=== PATIENT | female | born 1990 | race Caucasian/White ===

== ENCOUNTER 2016-07-18 09:36 | Emergency (ER) | payer OTHER ==
[~2016-07-18] VITALS: Ht 162.6 cm; Wt 81.6 kg
[2016-07-18 09:36] VITALS: BP 133/68; PULSE 79; RESP 19; TEMP 97.9; O2SAT 100
[~2016-07-18 09:36] MED LIST: PREN-89 PO
[2016-07-18 10:37] LABS: CREATININE 0.99 mg/dL (0.55-1.30); POTASSIUM 3.7 mmol/L (3.5-5.1)
[2016-07-18 10:39] LABS: BARBITURATE, URINE NEGATIVE (NEG <=200); BENZODIAZEPINE, URINE NEGATIVE (NEG <=150); CANNABINOID, URINE POSITIVE (NEG <=50); COCAINE, URINE NEGATIVE (NEG <=150); METHAMPHETAMINES SCREEN,URINE NEGATIVE (NEG <=500); OPIATE, URINE NEGATIVE (NEG <=100); PHENCYCLIDINE SCREEN,URINE NEGATIVE (NEG <=25); UR TRICYCLIC ANTIDEPRESSANTS NEGATIVE (NEG <=300); URINE AMPHETAMINE NEGATIVE (NEG <=500); URINE METHADONE NEGATIVE (NEG <=200); URINE OXYCODONE SCREEN NEGATIVE (NEG <=100); URINE PROPOXYPHENE SCREEN NEGATIVE (NEG <=300)
[2016-07-18 10:40] LABS: INR 0.9 (0.8-1.2); PROTHROMBIN TIME 9.9 SECS (9.5-12.5)
[2016-07-18 10:42] LABS: ALBUMIN 3.4 g/dL (3.4-4.8); BASOPHILS % (AUTO) 0.7 % (0.0-2.0); EOSINOPHILS # (AUTO) 0.3 K/uL (0.0-0.4); EOSINOPHILS % (AUTO) 3.9 % (0.0-4.0); HEMATOCRIT 39.7 % (36-48); HEMOGLOBIN 13.3 g/dL (12.0-16.0); LYMPHOCYTES # (AUTO) 2.4 K/uL (1.0-5.5); LYMPHOCYTES % (AUTO) 33.4 % (20.5-51.5); MEAN CORPUSCULAR HEMOGLOBIN 31 pg (27-31); MEAN CORPUSCULAR HGB CONC 33 % (32-36); MEAN CORPUSCULAR VOLUME 92 fL (79.0-98.0); MONOCYTES # (AUTO) 0.4 K/uL (0.0-1.0); PLATELET COUNT (AUTO) 190 K/uL (130-430); RED BLOOD CELL COUNT(AUTO) 4.33 MIL/uL (4.2-6.2); RED CELL DISTRIBUTION WIDTH 13.1 % (9.0-15.0); TOTAL BILIRUBIN 0.2 mg/dL (0.0-1.0); TOTAL PROTEIN, SERUM 7.4 g/dL (6.4-8.3); WHITE BLOOD COUNT (AUTO) 7.1 K/uL (4.8-10.8)
[2016-07-18 14:07] VITALS: BP 119/82; PULSE 70; RESP 18; TEMP 98; O2SAT 100
== END 2016-07-18 14:07 | disposition home or self-care (01) ==
LOC: SED 09:36
DX: S09.90XA Unspecified injury of head, initial encounter (principal); V43.62XA Car passenger injured in collision with other type car in traffic accident, initial encounter; Y93.89 Activity, other specified; Y92.89 Other specified places as the place of occurrence of the external cause; Y99.8 Other external cause status
CPT/HCPCS: 36415; 70450-TC; 72125-TC; 73564; 80053; 80307; 81025; 82550-TC; 84703; 85025; 85610-TC; 85730-TC; 99285

== ENCOUNTER 2017-12-18 13:35 | Emergency (ER) | payer SELFPAY ==
[~2017-12-18] VITALS: Ht 162.6 cm; Wt 77.1 kg
[2017-12-18 13:45] VITALS: BP_SYST 129
[2017-12-18 14:15] VITALS: BP_SYST 128
== END 2017-12-18 14:18 | disposition home or self-care (01) ==
LOC: SED 13:35
DX: S09.90XA Unspecified injury of head, initial encounter (principal); R03.0 Elevated blood-pressure reading, without diagnosis of hypertension; W22.8XXA Striking against or struck by other objects, initial encounter; Y93.89 Activity, other specified; Y92.89 Other specified places as the place of occurrence of the external cause; Y99.8 Other external cause status
CPT/HCPCS: 99281

== ENCOUNTER 2018-04-19 20:13 | Emergency (ER) | payer SELFPAY ==
[~2018-04-19] VITALS: Ht 162.6 cm; Wt 81.6 kg
[2018-04-19 20:20] VITALS: BP_SYST 126
[2018-04-19] MEDS ORDERED: KETOROLAC TROMETHAMINE 30 MG VIAL IM ONE (21:00)
[2018-04-19 21:45] VITALS: BP_SYST 128
== END 2018-04-19 21:45 | disposition home or self-care (01) ==
LOC: SED 20:29
DX: O9A.211 Injury, poisoning and certain other consequences of external causes complicating pregnancy, first trimester (principal); S90.32XD Contusion of left foot, subsequent encounter; R03.0 Elevated blood-pressure reading, without diagnosis of hypertension; Z3A.14 14 weeks gestation of pregnancy; W20.8XXD Other cause of strike by thrown, projected or falling object, subsequent encounter
CPT/HCPCS: 99282

== ENCOUNTER 2018-07-26 03:35 | Emergency (ER) | payer MEDICAID ==
[~2018-07-26] VITALS: Ht 162.6 cm; Wt 81.6 kg
[2018-07-26 03:45] VITALS: BP_SYST 123
[2018-07-26] MEDS ORDERED: IBUPROFEN 800 MG TABLET PO ONE (04:00)
[2018-07-26] MEDS ORDERED: AMOXICILLIN 500 MG CAPSULE PO ONE (04:00)
[2018-07-26 04:20] VITALS: BP_SYST 125
== END 2018-07-26 04:20 | disposition home or self-care (01) ==
LOC: SED 03:35
DX: H66.91 Otitis media, unspecified, right ear (principal); J06.9 Acute upper respiratory infection, unspecified
CPT/HCPCS: 99283

== ENCOUNTER 2018-07-28 03:48 | Emergency (ER) | payer MEDICAID ==
[~2018-07-28] VITALS: Ht 162.6 cm; Wt 81.6 kg
[2018-07-28 03:53] VITALS: BP_SYST 130
[2018-07-28] MEDS ORDERED: NACL 0.9% 1,000 ML IV ONE (04:18)
[2018-07-28] MEDS ORDERED: MORPHINE 4 MG/ML INJ. SYRINGE IVP ONE (04:30)
[2018-07-28] MEDS ORDERED: DIPHENHYDRAMINE INJ 50 MG/ML VIAL IVP ONE (04:30)
[2018-07-28] MEDS ORDERED: ONDANSETRON HCL 4 MG/2 ML VIAL IVP ONE (04:45)
[2018-07-28 04:52] LABS: BASOPHILS % (AUTO) 0.7 % (0.0-2.0); EOSINOPHILS # (AUTO) 0.1 K/uL (0.0-0.4); EOSINOPHILS % (AUTO) 1.6 % (0.0-4.0); HEMATOCRIT 44.9 % (36-48); LYMPHOCYTES % (AUTO) 48.3 % (20.5-51.5); MEAN CORPUSCULAR HEMOGLOBIN 31 pg (27-31); MEAN CORPUSCULAR HGB CONC 33 % (32-36); MEAN CORPUSCULAR VOLUME 92 fL (79.0-98.0); MONOCYTES # (AUTO) 0.6 K/uL (0.0-1.0); MONOCYTES % (AUTO) 9.1 % (1.7-9.3); NEUTROPHILS # (AUTO) 2.5 K/uL (1.8-7.7); NEUTROPHILS % (AUTO) 40.3 % (40.0-70.0); PLATELET COUNT (AUTO) 224 K/uL (130-430); RED BLOOD CELL COUNT(AUTO) 4.87 MIL/uL (4.2-6.2); RED CELL DISTRIBUTION WIDTH 12.9 % (9.0-15.0); WHITE BLOOD COUNT (AUTO) 6.2 K/uL (4.8-10.8)
[2018-07-28 04:58] LABS: CALCIUM 9.1 mg/dL (8.4-11.0); CREATININE 0.89 mg/dL (0.55-1.30); POTASSIUM 3.8 mmol/L (3.5-5.1)
[2018-07-28 05:04] LABS: ALBUMIN 3.7 g/dL (3.4-4.8); TOTAL BILIRUBIN 0.4 mg/dL (0.0-1.0)
[2018-07-28 05:42] LABS: BILIRUBIN,URINE NEGATIVE (NEGATIVE); BLOOD, URINE 3+ (NEGATIVE); CLARITY/URINE CLEAR (CLEAR); COLOR,URINE YELLOW (YELLOW); GLUCOSE,URINE NEGATIVE (NEGATIVE); KETONES,URINE NEGATIVE (NEGATIVE); LEUKOCYTE ESTERASE ,URINE NEGATIVE (NEGATIVE); NITRITE, URINE NEGATIVE (NEGATIVE); PROTEIN URINE NEGATIVE (NEGATIVE); UROBILINOGEN,URINE 0.2 (0.2-1.0)
[2018-07-28 06:06] LABS: BACTERIA,URINE FEW /HPF (None Seen); WBC,URINE 0-3 /HPF (0-3)
[2018-07-28 06:51] VITALS: BP_SYST 124
== END 2018-07-28 06:51 | disposition home or self-care (01) ==
LOC: SED 03:48
DX: H66.93 Otitis media, unspecified, bilateral (principal); R51 Headache
CPT/HCPCS: 36415; 71045; 80053; 81000; 85025; 86710; 96374; 96375; 99284; J1200; J2270; J2405; J7030

== ENCOUNTER 2018-09-14 19:25 | Emergency (ER) | payer MEDICAID ==
[~2018-09-14] VITALS: Ht 162.6 cm; Wt 81.6 kg
[2018-09-14 19:30] VITALS: BP_SYST 119
== END 2018-09-15 04:52 | disposition left against medical advice (07) ==
LOC: SED 19:25
DX: R68.84 Jaw pain (principal); Z53.21 Procedure and treatment not carried out due to patient leaving prior to being seen by health care provider

== ENCOUNTER 2018-12-22 20:05 | Emergency (ER) | payer MEDICAID ==
[~2018-12-22] VITALS: Ht 162.6 cm; Wt 81.6 kg
[2018-12-22 20:13] VITALS: BP_SYST 116
[2018-12-22] MEDS ORDERED: ACETAMINOPHEN 325 MG TABLET PO ONE (20:45)
[2018-12-22 20:58] VITALS: BP_SYST 116
== END 2018-12-22 20:54 | disposition home or self-care (01) ==
LOC: SED 20:05
DX: S63.501A Unspecified sprain of right wrist, initial encounter (principal); W19.XXXA Unspecified fall, initial encounter; Y93.89 Activity, other specified; Y92.89 Other specified places as the place of occurrence of the external cause; Y99.8 Other external cause status
CPT/HCPCS: 99283

== ENCOUNTER 2019-03-06 18:34 | Inpatient (IN) | payer MEDICAID ==
[~2019-03-06] VITALS: Ht 162.6 cm; Wt 88.9 kg
[2019-03-06 18:45] VITALS: BP_SYST 123
--- NOTE | 2019-03-06 19:47 | NUR ---
Patient to ER bed 1 to gown for evaluation. Side rails up. Report given to Gina FIELDS.
--- NOTE | 2019-03-06 20:00 | NUR ---
Patient arrived via POV, AAOx4, and ambulatory with steady gait. Patient c/c of facial swelling. Patient states swelling was first noticed on Friday. Patient states early last week she had flu like symptoms like nausea, vomiting, diarrhea. Since resolved. Now, she has swelling to right "jawline" and patient having difficulty opening mouth. Patient has been taking OTC motrin for inflammation reduction, increased ability to open mouth. Patient states no increased salivation, recent dental work. Patient states she has intermittent feelings of shortness of breath, causing anxiety. Patients skin warm to touch. 98.2 was temperature recheck. Patient notes chills, and night sweats present. Unknown regarding fever. Will continue to follow up and monitor.
--- NOTE | 2019-03-06 20:59 | NUR ---
ER at bedside examining patient.
[2019-03-06] MEDS ORDERED: ONDANSETRON HCL 4 MG/2 ML VIAL IVP ONE (21:00)
[2019-03-06] MEDS ORDERED: NACL 0.9% 1,000 ML IV ONE (21:00)
[2019-03-06] MEDS ORDERED: MORPHINE 4 MG/ML INJ. SYRINGE IVP ONE (21:00)
[2019-03-06] MEDS ORDERED: DEXAMETHASONE SOD PHOSPHATE 10 MG/ML VIAL IVP ONE (21:00)
--- NOTE | 2019-03-06 21:20 | NUR ---
# 20 gauge angiocath placed to RAC. Use of asceptic technique. Opsite placed over site. Blood return noted. Blood for lab drawn from site. Flushed with 10 cc of normal saline. No evidence of infiltration noted. Patient tolerated well.
[2019-03-06 21:31] LABS: BASOPHILS # (AUTO) 0.1 K/uL (0.0-0.2); BASOPHILS % (AUTO) 0.7 % (0.0-2.0); EOSINOPHILS # (AUTO) 0.2 K/uL (0.0-0.4); EOSINOPHILS % (AUTO) 2.6 % (0.0-4.0); HEMATOCRIT 37.8 % (36-48); HEMOGLOBIN 12.5 g/dL (12.0-16.0); LYMPHOCYTES # (AUTO) 3.2 K/uL (1.0-5.5); LYMPHOCYTES % (AUTO) 34.7 % (20.5-51.5); MEAN CORPUSCULAR HEMOGLOBIN 32 pg (27-31); MEAN CORPUSCULAR HGB CONC 33 % (32-36); MEAN CORPUSCULAR VOLUME 95 fL (79.0-98.0); MONOCYTES # (AUTO) 0.5 K/uL (0.0-1.0); MONOCYTES % (AUTO) 5.7 % (1.7-9.3); NEUTROPHILS # (AUTO) 5.1 K/uL (1.8-7.7); NEUTROPHILS % (AUTO) 56.3 % (40.0-70.0); PLATELET COUNT (AUTO) 206 K/uL (130-430); RED BLOOD CELL COUNT(AUTO) 3.96 MIL/uL (4.2-6.2); RED CELL DISTRIBUTION WIDTH 13.6 % (9.0-15.0); WHITE BLOOD COUNT (AUTO) 9.1 K/uL (4.8-10.8)
--- NOTE | 2019-03-06 21:39 | NUR ---
Consent signed for CT with contrast.
--- NOTE | 2019-03-06 21:40 | NUR ---
Patient medicated for pain with morphine and zofran. Patient given steroids. Patient verbalized understanding of side effects and expected outcomes. Will continue to follow up and monitor.
[2019-03-06 21:44] LABS: CALCIUM 8.5 mg/dL (8.4-11.0); CREATININE 0.79 mg/dL (0.55-1.30); POTASSIUM 4.3 mmol/L (3.5-5.1)
[2019-03-06 21:51] LABS: ALBUMIN 3.1 g/dL (3.4-4.8)
--- NOTE | 2019-03-06 21:52 | NUR ---
Patient taken to CT scan via gurney.
[2019-03-06 22:06] LABS: TOTAL BILIRUBIN 0.1 mg/dL (0.0-1.0)
[2019-03-06] MEDS ORDERED: IOHEXOL 100 ML IV ONE (22:07)
[2019-03-06] MEDS ORDERED: CLINDAMYCIN 600 mg/50mL D5W 50 ML IV ONE (23:00)
[2019-03-06] MEDS ORDERED: PIPERACILLIN/TAZO 3.375 GM in NS 50 ML IV ONE (23:00)
--- NOTE | 2019-03-06 23:20 | NUR ---
Patient resting comfortably. Needs are met at this time. Patient aware we are waiting for results, then we will let her know if she will be admitted or discharged.
[2019-03-06] MEDS ORDERED: PIPERACILLIN/TAZOBACTAM 3.375 GM/VIAL (ZOSYN) IV ONE (23:43)
--- NOTE | 2019-03-06 23:55 | NUR ---
Patient admission orders received. Entered by RN.
--- NOTE | 2019-03-07 00:13 | NUR ---
RECEIVED TELEPHONE REPORT FROM GUERO-ER NURSE. PER GUERO-RN, THE BLOOD CULTURES HAVE BEEN DRAWN PRIOR TO ADMINISTERING ANTIBIOTICS; HOWEVER, THE SYSTEM IS NOT PROCESSING THE BLOOD CULTURE PROPERLY. CALLED LAB, AND SPOKE WITH MARCEL. MARCEL STATED THAT THEY DO NOT HAVE A TICKET FOR THIS BLOOD CULTURE. MARCEL STATED HE WILL INVESTIGATE AND CALL ME BACK. CHARGE NURSE AWARE.
--- NOTE | 2019-03-07 00:14 | NUR ---
Report called to DIAMOND Aranda.
--- NOTE | 2019-03-07 00:20 | NUR ---
Patient will be admitted to care of Dr. Mata. Admitted to Med/Surg unit. Will go to room 100B. Belongings list completed. Summary report printed. Report will be given at bedside.
--- NOTE | 2019-03-07 00:30 | NUR ---
ADMISSION NOTE Received patient from ER via vianey, received report from GUERO FIELDS. Patient admitted with diagnosis of FACIAL CELLULITIS. Patient oriented to hospital routine, call light, toileting and safety-patient verbalized understanding.
[2019-03-07] MEDS: MORPHINE 2 MG/ML INJ. SYRINGE IVP PRN ×2 (00:41→06:07)
[2019-03-07 00:45] VITALS: BP_SYST 122
--- NOTE | 2019-03-07 01:30 | NUR ---
PATIENT'S FRIEND-SUMMER IS LAYING IN THE BED WITH THE PATIENT. EDUCATED THE PATIENT AND FRIEND THAT THE BED IS SUPPOSED TO BE FOR THE PATIENT ONLY. PATIENT AND FRIEND VERBALIZES UNDERSTANDING. CHARGE NURSE AWARE. IV SITE INTACT, DRESSING CLEAN AND DRY, SALINE LOCKED. BED IS LOCKED, IN THE LOWEST POSITION, 2X SIDE RAILS UP. PATIENT REFUSES BED ALARM AT THIS TIME. ABLE TO AMBULATE WITH STEADY GAIT INDEPENDENTLY WITHOUT ASSISTANCE. CALL LIGHT WITHIN REACH. ENCOURAGED PATIENT TO CALL FOR ASSISTANCE.
--- NOTE | 2019-03-07 03:45 | NUR ---
PATIENT IS RESTING COMFORTABLY IN BED, EYES CLOSED. BREATHING EVEN AND UNLABORED WITH VISIBLE CHEST RISE AND FALL NOTED. NO SOB, NO ACUTE DISTRESS, NO SIGNS OF PAIN OR FACIAL GRIMACING NOTED. BED IS LOCKED, IN THE LOWEST POSITION, 2X SIDE RAILS UP. CALL LIGHT WITHIN REACH.
[2019-03-07] MEDS ORDERED: PIPERACILLIN/TAZOBACTAM 3.375 GM/VIAL (ZOSYN) IV ONE (05:38)
[2019-03-07] MEDS: PIPERACILLIN/TAZO 3.375 GM in NS 50 ML IV SCH ×4 (06:01→23:47)
--- NOTE | 2019-03-07 06:56 | NUR ---
CLOSING NOTES PATIENT IS RESTING COMFORTABLY IN BED, AAOX4. FRIEND-SUMMER IS AT THE BEDSIDE. NO SOB, NO ACUTE DISTRESS, NO COMPLAINTS OF PAIN AT THIS TIME. BED IS LOCKED, IN THE LOWEST POSITION, 2X SIDE RAILS UP, BED ALARM IS ON. IV SITE INTACT, SALINE LOCKED. CALL LIGHT WITHIN REACH. ALL NEEDS HAVE BEEN MET DURING THIS SHIFT. WILL ENDORSE CARE TO ONCOMING DAYSHIFT NURSE.
[2019-03-07] MEDS ORDERED: ONDANSETRON HCL 4 MG/2 ML VIAL IVP PRN (07:45)
[2019-03-07] MEDS ORDERED: ACETAMINOPHEN 325 MG TABLET PO PRN (07:45)
--- NOTE | 2019-03-07 07:53 | NUR ---
03/07/2019 0753 This patient is lying in bed. Vital signs obtained: 103/57 HR 81, Temp 97.4, Resp 20, 99% on RA. She denies pain. No s/s of distress. Labs reviewed from 03/06/19. No labs noted for today.
[2019-03-07] MEDS: DOCUSATE SODIUM 100 MG CAPSULE PO SCH ×2 (08:17→22:11)
[2019-03-07] MEDS: CLINDAMYCIN 600 MG in D5W 50 ML IV SCH ×2 (08:18→22:11)
[2019-03-07] MEDS: HEPARIN SODIUM,PORCINE 5000 UNITS/ML VIAL SUBCUT SCH ×2 (08:24→22:14)
[2019-03-07 08:31] VITALS: BP_SYST 103
[2019-03-07 09:44] LABS: BASOPHILS % (AUTO) 0.2 % (0.0-2.0); HEMOGLOBIN 13.3 g/dL (12.0-16.0); LYMPHOCYTES # (AUTO) 1.1 K/uL (1.0-5.5); LYMPHOCYTES % (AUTO) 11.4 % (20.5-51.5); MEAN CORPUSCULAR HEMOGLOBIN 32 pg (27-31); MEAN CORPUSCULAR HGB CONC 33 % (32-36); MEAN CORPUSCULAR VOLUME 95 fL (79.0-98.0); MONOCYTES # (AUTO) 0.1 K/uL (0.0-1.0); MONOCYTES % (AUTO) 0.8 % (1.7-9.3); NEUTROPHILS # (AUTO) 8.2 K/uL (1.8-7.7); NEUTROPHILS % (AUTO) 87.6 % (40.0-70.0); RED CELL DISTRIBUTION WIDTH 13.5 % (9.0-15.0); WHITE BLOOD COUNT (AUTO) 9.4 K/uL (4.8-10.8)
[2019-03-07 09:51] LABS: INR 0.9 (0.8-1.2); PROTHROMBIN TIME 9.5 SECS (9.5-12.5)
[2019-03-07 10:04] LABS: CALCIUM 8.7 mg/dL (8.4-11.0); CREATININE 0.83 mg/dL (0.55-1.30); FREE T4 (FREE THYROXINE) 0.9 ng/dl (0.8-1.5); PHOSPHORUS 2.7 mg/dL (2.7-4.5); POTASSIUM 4.3 mmol/L (3.5-5.1); THYROID STIMULATING HORMONE 0.39 uIu/mL (0.36-3.74)
[2019-03-07 11:14] LABS: PLATELET COUNT (AUTO) 227 K/uL (130-430)
[2019-03-07 12:00] VITALS: BP_SYST 100
--- NOTE | 2019-03-07 12:23 | NUR ---
03/07/2019 1223 Antibiotic therapy continues. This patient has been sleeping on and off throughout the day. The cork slabs sawyer has just drawn for lactic acid. The one at 9am was 2.1. Awaiting results. The patient stated that she was able to eat only the eggs from breakfast.
[2019-03-07] MEDS: HYDROcodone/ACETAMIN 5-325 MG TAB (NORCO/ VICODIN) PO PRN ×2 (14:47→23:47)
[2019-03-07] MEDS: NACL 0.9% 1,000 ML IV SCH (18:56)
[2019-03-07 20:44] VITALS: BP_SYST 112
--- NOTE | 2019-03-07 22:15 | NUR ---
HEPARIN 5000 UNITS SUB Q. administer as ordered patient is ambulatory .
--- NOTE | 2019-03-08 | NUR ---
ZOSYN 3.375 GM IVBP administer as ordered patient awake alert .
[2019-03-08 01:00] VITALS: BP_SYST 132
--- NOTE | 2019-03-08 01:42 | NUR ---
NORCO 5 /325 MG PO ADMINISTER FOR GENERAL PAIN 5/10 & HELPFUL patient awake this hour Visitor @ the bedside .
--- NOTE | 2019-03-08 01:54 | NUR ---
patient Refuse SCD , ambulates .
--- NOTE | 2019-03-08 02:24 | NUR ---
URINE COLLECTED & SENT TO LAB .
[2019-03-08 02:50] LABS: BILIRUBIN,URINE NEGATIVE (NEGATIVE); BLOOD, URINE NEGATIVE (NEGATIVE); CLARITY/URINE CLEAR (CLEAR); COLOR,URINE YELLOW (YELLOW); GLUCOSE,URINE NEGATIVE (NEGATIVE); KETONES,URINE NEGATIVE (NEGATIVE); LEUKOCYTE ESTERASE ,URINE NEGATIVE (NEGATIVE); NITRITE, URINE NEGATIVE (NEGATIVE); PROTEIN URINE NEGATIVE (NEGATIVE); UROBILINOGEN,URINE 0.2 (0.2-1.0)
[2019-03-08 03:01] LABS: BARBITURATE, URINE NEGATIVE (NEG <=200); BENZODIAZEPINE, URINE NEGATIVE (NEG <=150); CANNABINOID, URINE NEGATIVE (NEG <=50); COCAINE, URINE NEGATIVE (NEG <=150); METHAMPHETAMINES SCREEN,URINE NEGATIVE (NEG <=500); OPIATE, URINE POSITIVE (NEG <=100); PHENCYCLIDINE SCREEN,URINE NEGATIVE (NEG <=25); UR TRICYCLIC ANTIDEPRESSANTS NEGATIVE (NEG <=300); URINE AMPHETAMINE POSITIVE (NEG <=500); URINE METHADONE NEGATIVE (NEG <=200); URINE OXYCODONE SCREEN NEGATIVE (NEG <=100); URINE PROPOXYPHENE SCREEN NEGATIVE (NEG <=300)
[2019-03-08] MEDS: PIPERACILLIN/TAZO 3.375 GM in NS 50 ML IV SCH ×5 (05:48→23:23)
[2019-03-08 07:20] LABS: CALCIUM 8.2 mg/dL (8.4-11.0); CREATININE 0.76 mg/dL (0.55-1.30); POTASSIUM 3.4 mmol/L (3.5-5.1)
[2019-03-08 07:59] LABS: BASOPHILS % (AUTO) 0.3 % (0.0-2.0); EOSINOPHILS % (AUTO) 0.2 % (0.0-4.0); HEMATOCRIT 36.5 % (36-48); HEMOGLOBIN 12.1 g/dL (12.0-16.0); LYMPHOCYTES # (AUTO) 3.5 K/uL (1.0-5.5); MEAN CORPUSCULAR HEMOGLOBIN 31 pg (27-31); MEAN CORPUSCULAR HGB CONC 33 % (32-36); MEAN CORPUSCULAR VOLUME 95 fL (79.0-98.0); MONOCYTES # (AUTO) 0.5 K/uL (0.0-1.0); MONOCYTES % (AUTO) 4.4 % (1.7-9.3); NEUTROPHILS # (AUTO) 8.1 K/uL (1.8-7.7); NEUTROPHILS % (AUTO) 66.1 % (40.0-70.0); PLATELET COUNT (AUTO) 223 K/uL (130-430); RED BLOOD CELL COUNT(AUTO) 3.84 MIL/uL (4.2-6.2); RED CELL DISTRIBUTION WIDTH 13.5 % (9.0-15.0); WHITE BLOOD COUNT (AUTO) 12.2 K/uL (4.8-10.8)
[2019-03-08 08:00] VITALS: BP_SYST 111
--- NOTE | 2019-03-08 08:00 | NUR ---
AM NOTES- In bed awake, complain of moderate pain on her right face. Denies any shortness of breath,, Safety precaution observed. Call light within reach. Enc to call for help as needed.
[2019-03-08] MEDS: DOCUSATE SODIUM 100 MG CAPSULE PO SCH ×2 (08:17→20:38)
[2019-03-08] MEDS: HYDROcodone/ACETAMIN 5-325 MG TAB (NORCO/ VICODIN) PO PRN ×2 (08:17→20:38)
[2019-03-08] MEDS: HEPARIN SODIUM,PORCINE 5000 UNITS/ML VIAL SUBCUT SCH ×2 (08:21→20:39)
[2019-03-08] MEDS: CLINDAMYCIN 600 MG in D5W 50 ML IV SCH ×2 (08:24→20:39)
--- NOTE | 2019-03-08 10:00 | NUR ---
spoke to Dr. Pires and made aware of consults.
--- NOTE | 2019-03-08 10:23 | NUR ---
CONSULTATION PAGED REASON FOR CONSULTATION:FACIAL CELLULITIS WAS CONSULT CALLED?Y PERSON WHO WAS NOTIFIED:FRANKY CONSULTING PHYSICIAN:DIAN ALBERT INDUSTRIAL HYGIENIST SPECIALTY:ID INDUSTRIAL HYGIENIST PHONE NUMBER:[phone] REQUESTING PHYSICIAN:CAMILLA SAL
[2019-03-08 11:12] VITALS: BP_SYST 105
[2019-03-08] MEDS: MORPHINE 2 MG/ML INJ. SYRINGE IVP PRN ×2 (12:13→23:24)
--- NOTE | 2019-03-08 12:20 | NUR ---
Notes- Sitting in the chair, eating lunch. friend at bedside. pt complain of pain on her right face. medicated as ordered. No distress noted.
[2019-03-08] MEDS: NACL 0.9% 1,000 ML IV SCH (13:00)
--- NOTE | 2019-03-08 15:00 | NUR ---
MD ROUNDS' Seen by Pranay Cueto at bedside.
--- NOTE | 2019-03-08 18:14 | NUR ---
Notes- In bed, family at bedside. no change in assessment. All needs meet. Will endorse.
--- NOTE | 2019-03-08 19:20 | NUR ---
OPENING NOTE Bedside report received from dayshift nurse. Patient received lying in bed. No s/s of acute distress noted. Breathing even and unlabored. IVF infusing well. Call light with patient. Will continue to monitor.
[2019-03-08 20:00] VITALS: BP_SYST 104
--- NOTE | 2019-03-08 21:00 | NUR ---
ROUNDS Patient in bed sleeping. No signs of discomfort noted. Chest rise and fall even bilaterally. Call light with patient. Will continue to monitor.
--- NOTE | 2019-03-08 23:24 | NUR ---
PAIN Patient complained of pain. PRN medication to be administered. Will continue to monitor.
[2019-03-09] VITALS: BP_SYST 109
--- NOTE | 2019-03-09 01:30 | NUR ---
ROUNDS Patient in bed sleeping at this time. No signs of discomfort noted. Chest rise and fall even bilaterally. IVF infusing well. Call light with patient. Will continue to monitor.
--- NOTE | 2019-03-09 03:02 | NUR ---
ROUNDS Patient sleeping at this time. No s/s of acute distress noted. Breathing even and unlabored. IVF infusing well. All needs met. Call light with patient. Will continue to monitor.
--- NOTE | 2019-03-09 05:00 | NUR ---
ROUNDS Patient in bed asleep. No signs of discomfort noted. Chest rise and fall even bilaterally. IVF infusing well. Call light with patient. Will continue to monitor.
[2019-03-09] MEDS: PIPERACILLIN/TAZO 3.375 GM in NS 50 ML IV SCH (05:10)
[2019-03-09] MEDS: NACL 0.9% 1,000 ML IV SCH (05:11)
[2019-03-09] MEDS: MORPHINE 2 MG/ML INJ. SYRINGE IVP PRN ×2 (05:15→09:29)
[2019-03-09 05:44] LABS: CALCIUM 7.9 mg/dL (8.4-11.0); CREATININE 0.74 mg/dL (0.55-1.30); POTASSIUM 4.1 mmol/L (3.5-5.1)
[2019-03-09 06:18] LABS: BASOPHILS # (AUTO) 0.1 K/uL (0.0-0.2); BASOPHILS % (AUTO) 0.6 % (0.0-2.0); EOSINOPHILS # (AUTO) 0.2 K/uL (0.0-0.4); EOSINOPHILS % (AUTO) 1.7 % (0.0-4.0); HEMATOCRIT 37.2 % (36-48); HEMOGLOBIN 12.2 g/dL (12.0-16.0); LYMPHOCYTES # (AUTO) 4.9 K/uL (1.0-5.5); LYMPHOCYTES % (AUTO) 53.5 % (20.5-51.5); MEAN CORPUSCULAR HEMOGLOBIN 32 pg (27-31); MEAN CORPUSCULAR HGB CONC 33 % (32-36); MEAN CORPUSCULAR VOLUME 96 fL (79.0-98.0); MONOCYTES # (AUTO) 0.5 K/uL (0.0-1.0); MONOCYTES % (AUTO) 5.3 % (1.7-9.3); NEUTROPHILS # (AUTO) 3.6 K/uL (1.8-7.7); NEUTROPHILS % (AUTO) 38.9 % (40.0-70.0); PLATELET COUNT (AUTO) 232 K/uL (130-430); RED BLOOD CELL COUNT(AUTO) 3.88 MIL/uL (4.2-6.2); RED CELL DISTRIBUTION WIDTH 13.9 % (9.0-15.0); WHITE BLOOD COUNT (AUTO) 9.2 K/uL (4.8-10.8)
--- NOTE | 2019-03-09 06:51 | NUR ---
CLOSING NOTES Patient in bed sleeping at this time. No s/s of acute distress noted. Breathing even and unlabored. IVF infusing well, IV site patent, no signs of infiltration or infection noted. All needs met throughout shift. Fall and safety precautions maintained throughout shift. Will continue to monitor until patient cares is endorsed to oncoming dayshift nurse.
--- NOTE | 2019-03-09 07:45 | NUR ---
Initial Note Patient resting in bed. Denies any pain. Educated pt on safety and purpose of call light and bed alarm, pt verbalized understanding. Refusing bed alarm at this time. Call light within reach, bed in low and locked position.
[2019-03-09 08:00] VITALS: BP_SYST 109
[2019-03-09] MEDS: CLINDAMYCIN 600 MG in D5W 50 ML IV SCH (09:20)
[2019-03-09] MEDS: DOCUSATE SODIUM 100 MG CAPSULE PO SCH (09:21)
[2019-03-09] MEDS: HEPARIN SODIUM,PORCINE 5000 UNITS/ML VIAL SUBCUT SCH (09:26)
--- NOTE | 2019-03-09 09:29 | NUR ---
RN ROUNDS Pt complaining of pain to right cheek. Educated pt on uses and side effects of NORCO, pt verbalized understanding, refusing NORCO due to feeling nauseas. Educated pt on uses and side effects of morphine, pt verbalized understanding. PRN Morphine indicated for pain. Pt tolerated well.
[2019-03-09] MEDS ORDERED: CLIN300C11 PO (09:40)
[2019-03-09] MEDS ORDERED: AMOX-423 PO (09:40)
[2019-03-09 11:01] VITALS: BP_SYST 111
[2019-03-09 11:32] VITALS: BP_SYST 106
--- NOTE | 2019-03-09 11:51 | NUR ---
DISCHARGE NOTE Discharge packet and instructions given to patient. Instructed patient to follow up with dentist, pt verbalized understanding. Written prescription provided. Pt reports pain is controlled, no facial edema noted. No acute distress noted. Pt has steady gait. Patients niece at bedside, to drive patient home. IV catheter removed, catheter intact, no bleeding. Hospital ID band removed. Pt taken to parking lot via wheelchair. All belongings sent with patient.
== END 2019-03-09 11:58 | disposition home or self-care (01) | DRG 383 ==
LOC: SED 18:34 → SMU 23:22
PROVIDERS: ADMIT Student in an Organized Health Care Education/Training Program; ATTEND Student in an Organized Health Care Education/Training Program
DX: L03.211 Cellulitis of face (principal); E44.1 Mild protein-calorie malnutrition; K02.9 Dental caries, unspecified; E66.9 Obesity, unspecified; F15.10 Other stimulant abuse, uncomplicated; Z68.33 Body mass index [BMI] 33.0-33.9, adult; Z79.899 Other long term (current) drug therapy
CPT/HCPCS: 36415; 70487; 80048; 80053; 80061; 80307; 81003; 81025; 82140-TC; 83036; 83605; 83735-TC; 84100-TC; 84439; 84443-TC; 84484; 85025; 85610-TC; 85730-TC; 87040-TC; 96361; 96365; 96368; 96375; 99285; J1100; J1644; J2270; J2405; J2543; J3490; J7030; J7060; Q9967

== ENCOUNTER 2022-08-25 16:45 | Emergency (ER) | payer MEDICAID ==
[~2022-08-25] VITALS: Ht 162.6 cm; Wt 90.7 kg
[~2022-08-25 16:45] MED LIST changes: +AMOX-423 PO; +CLIN-142 PO; +IBUP-1969 PO; +NIRM1TAB5 PO; -PREN-89 PO
[2022-08-25 17:00] VITALS: BP_SYST 131
== END 2022-08-25 18:00 | disposition home or self-care (01) ==
LOC: SED 16:45
DX: J06.9 Acute upper respiratory infection, unspecified (principal); R05.9 Cough, unspecified; R06.02 Shortness of breath; Z79.899 Other long term (current) drug therapy
CPT/HCPCS: 99281

== ENCOUNTER 2023-04-19 20:26 | Emergency (ER) | payer MEDICAID ==
[~2023-04-19] VITALS: Ht 160 cm; Wt 99.8 kg
[2023-04-19 20:34] VITALS: BP_SYST 120; PULSE 73; RESP 18; TEMP 97.6; O2SAT 97
[2023-04-19 21:08] LABS: BASOPHILS % (AUTO) 0.5 % (0.0-2.0); EOSINOPHILS # (AUTO) 0.2 K/uL (0.0-0.4); EOSINOPHILS % (AUTO) 2.7 % (0.0-4.0); HEMOGLOBIN 12.3 g/dL (12.0-16.0); LYMPHOCYTES # (AUTO) 2.5 K/uL (1.0-5.5); LYMPHOCYTES % (AUTO) 34.5 % (20.5-51.5); MEAN CORPUSCULAR HEMOGLOBIN 29 pg (27-31); MEAN CORPUSCULAR HGB CONC 32 % (32-36); MEAN CORPUSCULAR VOLUME 89 fL (79.0-98.0); MONOCYTES # (AUTO) 0.3 K/uL (0.0-1.0); MONOCYTES % (AUTO) 4.4 % (1.7-9.3); NEUTROPHILS # (AUTO) 4.2 K/uL (1.8-7.7); NEUTROPHILS % (AUTO) 57.9 % (40.0-70.0); PLATELET COUNT (AUTO) 232 K/uL (130-430); RED BLOOD CELL COUNT(AUTO) 4.26 MIL/uL (4.2-6.2); RED CELL DISTRIBUTION WIDTH 13.7 % (9.0-15.0); WHITE BLOOD COUNT (AUTO) 7.3 K/uL (4.8-10.8)
[2023-04-19 21:21] LABS: ANION GAP 9 (5-15); CALCIUM 8.2 mg/dL (8.4-11.0); CARBON DIOXIDE 25 mmol/L (23-29); CHLORIDE 103 mmol/L (98-107); CREATININE 0.71 mg/dL (0.55-1.30); GFR AFRICAN AMERICAN 122 mL/min (>90); GLUCOSE 104 mg/dL (74-106); POTASSIUM 3.7 mmol/L (3.5-5.1); SODIUM SERUM 137 mmol/L (136-145); UREA NITROGEN, BLOOD 6 mg/dL (8-21)
[2023-04-19 21:35] LABS: ALANINE AMINOTRANSFERASE 31 U/L (12-78); ALBUMIN 3.4 g/dL (3.4-4.8); AMYLASE 36 U/L (0-100); ASPARTATE AMINOTRANSFERASE 21 U/L (10-37); LIPASE 15 U/L (16-77); TOTAL BILIRUBIN 0.3 mg/dL (0.0-1.0); TOTAL PROTEIN, SERUM 6.8 g/dL (6.4-8.3)
[2023-04-19 21:36] LABS: GFR NON AFRICAN-AMERICAN 101 mL/min (>90)
[2023-04-19 21:56] LABS: ACETONE, SERUM NEGATIVE (NEGATIVE)
[2023-04-19 21:57] LABS: BILIRUBIN,URINE NEGATIVE (NEGATIVE); BLOOD, URINE NEGATIVE (NEGATIVE); CLARITY/URINE CLEAR (CLEAR); COLOR,URINE YELLOW (YELLOW); GLUCOSE,URINE NEGATIVE (NEGATIVE); KETONES,URINE NEGATIVE (NEGATIVE); LEUKOCYTE ESTERASE ,URINE NEGATIVE (NEGATIVE); NITRITE, URINE NEGATIVE (NEGATIVE); PROTEIN URINE NEGATIVE (NEGATIVE); UROBILINOGEN,URINE 0.2 (0.2-1.0)
[2023-04-20 01:34] VITALS: BP_SYST 120; PULSE 88; RESP 18; TEMP 97.2; O2SAT 98
== END 2023-04-20 01:34 | disposition home or self-care (01) ==
LOC: SED 20:26
DX: R10.33 Periumbilical pain (principal); Z79.899 Other long term (current) drug therapy
CPT/HCPCS: 36415; 76376; 80053; 81001; 81003; 81025; 82009; 82150; 83605; 83690; 85025; 99284